=== PATIENT | male | born 1960 | race Caucasian/White ===

== ENCOUNTER 2023-03-18 08:54 | Outpatient (CLI) | payer BC ==
[2023-03-18 10:04] LABS: #Eosinphils 0.6 10x3/uL (0.0-0.5); #Monocytes 0.8 10x3/uL (0.0-1.1); #Neutrophils 4.3 10x3/uL (1.5-8.4); %Basophils 0.5 % (0.0-2.0); %Lymphocytes 25.1 % (18.0-47.0); %Monocytes 9.8 % (0.0-10.0); %Neutrophils 56.2 % (40.0-75.0); Hemoglobin 15.2 g/dL (13.5-17.5); Mean Corpuscular HGB CONC 33.2 g/dL (32.0-36.0); Mean Corpuscular Hemoglobin 28.7 pg (27.0-33.0); Mean Corpuscular Volume 86.4 fl (81.2-95.1); Mean Platelet Volume 10.6 fl (7.4-10.4); Platelet Count 245 10x3/uL (150-450); RBC Distribution Width 12.6 % (11.5-14.5); White Blood Cell (WBC) Count 7.6 10x3/uL (3.5-10.5)
[2023-03-18 10:11] LABS: Prothrombin Time 10.3 sec (9.5-12.1)
[2023-03-18 10:13] LABS: Anion Gap 15 mmol/L (10-20); BUN (Urea Nitrogen) 25 mg/dL (8.4-25.7); Calc. Creatinine Clearance 0 mL/min (70-130); Calcium 9.1 mg/dL (7.8-10.44); Carbon Dioxide 24 mmol/L (23-31); Chloride 102 mmol/L (98-107); Estimated GFR 76; Glucose 252 mg/dL (80-115); Potassium 4.5 mmol/L (3.5-5.1); Sodium 136 mmol/L (136-145)
== END 2023-03-18 08:55 | disposition home or self-care (01) ==
LOC: LABBT 08:54
PROVIDERS: ATTEND Orthopaedic Surgery
DX: Z01.818 Encounter for other preprocedural examination (principal); M17.12 Unilateral primary osteoarthritis, left knee
CPT/HCPCS: 80048; 85025; 85610; 87081; 93005; 93010

== ENCOUNTER 2023-03-21 05:33 | Observation (INO) | payer BC ==
[2023-03-18 09:49] VITALS: BMI 29.9
[2023-03-21] MEDS ORDERED: fentaNYL PF 100 MCG/2 ML SYRINGE ONE (05:58)
[2023-03-21] MEDS ORDERED: PHENYLEPHRINE-NS 100 MCG/ML 10 ML SYRINGE ONE (05:59)
[2023-03-21] MEDS ORDERED: Dexmedetomidine 200 MCG/2 ML VIAL ONE (05:59)
[2023-03-21] MEDS ORDERED: Tranexamic Acid 1,000 MG/10 ML VIAL ONE (06:07)
[2023-03-21] MEDS ORDERED: Sodium Chloride 0.9% 100 ML ONE ×2 (06:07→06:52)
[2023-03-21] MEDS ORDERED: Vancomycin (BATCH) 1.5 GRAM/300 ML BAG ONE (06:07)
[2023-03-21] MEDS ORDERED: HYDROcodone/Acetaminophen 10/325 mg Tablet PO PRN (06:42)
[2023-03-21] MEDS ORDERED: Ondansetron PF 4 MG/2 ML Vial IVP PRN ×2 (06:42→09:15)
[2023-03-21] MEDS ORDERED: diphenhydrAMINE 25 MG CAP PO PRN (06:42)
[2023-03-21] MEDS ORDERED: Acetaminophen 325 MG TAB PO PRN (06:42)
[2023-03-21] MEDS ORDERED: Promethazine HCl 25 MG/ML VIAL IM PRN ×2 (06:42→09:15)
[2023-03-21] MEDS ORDERED: Zolpidem Tartrate 5 MG TAB PO PRN ×2 (06:42→09:15)
[2023-03-21] MEDS ORDERED: Fentanyl 100 MCG/2 ML VIAL SLOW IVP PRN ×2 (06:42)
[2023-03-21] MEDS ORDERED: Bupivacaine PF 0.5% 30 ML VIAL ONE (06:46)
[2023-03-21] MEDS ORDERED: Ropivacaine 0.2% HCl/PF 20 ML ONE (06:49)
[2023-03-21] MEDS ORDERED: fentaNYL 50 mcg/mL 1 mL Vial ONE (06:49)
[2023-03-21] MEDS ORDERED: Midazolam HCl 2 mg/2 ml Vial ONE (06:49)
[2023-03-21] MEDS ORDERED: CEFAZOLIN 2 GM VIAL ONE (06:52)
[2023-03-21] MEDS ORDERED: fentaNYL 50 mcg/mL 1 mL Vial SLOW IVP PRN ×3 (07:02→09:10)
[2023-03-21] MEDS ORDERED: Dexamethasone 20 MG/5 ML VIAL ONE (07:53)
[2023-03-21] MEDS ORDERED: Ondansetron PF 4 MG/2 ML Vial ONE (07:53)
[2023-03-21] MEDS ORDERED: Lidocaine 1% PF 5 ML VIAL ONE (07:53)
[2023-03-21] MEDS ORDERED: PROPOFOL 200 MG/20 ML VIAL ONE (07:53)
[2023-03-21] MEDS ORDERED: Ketorolac Tromethamine 30 MG/ML VIAL ONE (07:53)
[2023-03-21] MEDS ORDERED: Non-Formulary Item 1 EACH (Zinc Gluconate [Zinc] 30 MG Tablet) PO SCH (09:00)
[2023-03-21] MEDS ORDERED: Aspirin Chewable 81 MG TAB PO SCH ×2 (09:00)
[2023-03-21] MEDS ORDERED: Non-Formulary Item 1 EACH (Glucosamine/D3/Boswellia Serra [Osteo Bi-Flex One Per Day] 1 T PO SCH (09:00)
[2023-03-21] MEDS ORDERED: D3 PO SCH (09:00)
[2023-03-21] MEDS ORDERED: GLUCOSAMINE PO SCH (09:00)
[2023-03-21] MEDS ORDERED: Lisinopril 10 MG TAB PO SCH (09:00)
[2023-03-21] MEDS ORDERED: [UNRECOGNIZED DRUG - OTHER] PO SCH (09:00)
[2023-03-21] MEDS ORDERED: Multivit, Therapeutic 1 TAB PO SCH (09:00)
[2023-03-21] MEDS ORDERED: METFORMIN PO SCH (09:00)
[2023-03-21] MEDS ORDERED: Loratadine 10 MG TAB PO SCH (09:00)
[2023-03-21] MEDS ORDERED: Non-Formulary Item 1 EACH (Multivitamin [Multivitamin] 1 EACH Tablet) PO SCH (09:00)
[2023-03-21] MEDS ORDERED: BOSWELLIA SERRA PO SCH (09:00)
[2023-03-21] MEDS ORDERED: GLIPIZIDE PO SCH (09:00)
[2023-03-21] MEDS ORDERED: Simvastatin 40 MG TAB PO SCH (09:00)
[2023-03-21] MEDS ORDERED: Cholecalciferol 1,000 UNITS (25 MCG) TAB PO SCH (09:00)
[2023-03-21] MEDS ORDERED: Ropivacaine 0.2% 550 ML 550 ML NERVE BLCK SCH (09:15)
[2023-03-21] MEDS: Cholecalciferol 1,000 UNITS (25 MCG) TAB PO SCH ×2 (11:54→20:08)
[2023-03-21] MEDS: Sodium Chloride 0.9% 1,000 ML IV SCH ×3 (11:54→23:24)
[2023-03-21] MEDS: Ferrous Gluconate 324 MG TAB PO SCH ×2 (11:54→20:07)
[2023-03-21] MEDS: Aspirin 81 mg Enteric Coated Tablet PO SCH ×2 (11:54→20:07)
[2023-03-21] MEDS: Multivitamin W/ Minerals 1 TAB PO SCH (11:55)
[2023-03-21] MEDS: Loratadine 10 MG TAB PO SCH (11:55)
[2023-03-21] MEDS: Zinc Sulfate 220 MG CAP PO SCH (12:04)
[2023-03-21] MEDS: Senokot S 8.6-50 MG TAB PO SCH ×2 (12:04→20:07)
[2023-03-21] MEDS: Ketorolac Tromethamine 30 MG/ML VIAL IVP SCH ×2 (13:38→21:42)
[2023-03-21] MEDS: CEFAZOLIN 2 GM in Sodium Chloride 0.9% 100 ML IVPB SCH ×2 (13:39→21:42)
[2023-03-21] MEDS: glipiZIDE 5 MG TAB PO SCH ×2 (13:54→20:07)
[2023-03-21] MEDS: Lisinopril 10 MG TAB PO SCH (13:54)
[2023-03-21] MEDS: metFORMIN 500 MG TAB PO SCH ×2 (13:54→20:07)
[2023-03-21] MEDS ORDERED: Atorvastatin Calcium 20 MG TAB PO SCH (21:00)
[2023-03-22] MEDS: Ketorolac Tromethamine 30 MG/ML VIAL IVP SCH (05:46)
[2023-03-22] MEDS: HYDROcodone/Acetaminophen 10/325 mg Tablet PO PRN ×2 (05:46→09:53)
[2023-03-22 06:02] LABS: Hemoglobin 12.4 g/dL (14.0-18.0); Mean Corpuscular HGB CONC 32.7 g/dL (32.0-36.0); Mean Corpuscular Hemoglobin 29.1 pg (27.0-31.0); Mean Corpuscular Volume 89.1 fl (78.0-98.0); Mean Platelet Volume 8.3 fL (7.4-10.4); Platelet Count 224 10x3/uL (130-400); RBC Distribution Width 11.7 % (11.5-14.5); Red Blood Cell (RBC) Count 4.26 mill/uL (4.70-6.10); White Blood Cell (WBC) Count 14.6 10x3/uL (4.8-10.8)
[2023-03-22] MEDS: Lisinopril 10 MG TAB PO SCH (08:34)
[2023-03-22] MEDS: Multivitamin W/ Minerals 1 TAB PO SCH (08:34)
[2023-03-22] MEDS: Ferrous Gluconate 324 MG TAB PO SCH (08:35)
[2023-03-22] MEDS: Zinc Sulfate 220 MG CAP PO SCH (08:35)
[2023-03-22] MEDS: Loratadine 10 MG TAB PO SCH (08:35)
[2023-03-22] MEDS: Cholecalciferol 1,000 UNITS (25 MCG) TAB PO SCH (08:35)
[2023-03-22] MEDS: glipiZIDE 5 MG TAB PO SCH (08:35)
[2023-03-22] MEDS: Senokot S 8.6-50 MG TAB PO SCH (08:36)
[2023-03-22] MEDS: metFORMIN 500 MG TAB PO SCH (08:36)
[2023-03-22] MEDS: Aspirin 81 mg Enteric Coated Tablet PO SCH (08:36)
[2023-03-22 11:24] VITALS: BP 147/77; TEMP 97.9
== END 2023-03-22 11:55 | disposition home or self-care (01) ==
LOC: SDC 05:33 → SJJU 10:28
PROVIDERS: ADMIT Orthopaedic Surgery; ATTEND Orthopaedic Surgery
PROC: 0SRD0J9 Replacement of Left Knee Joint with Synthetic Substitute, Cemented, Open Approach (ICD-10-PCS; principal; 2023-03-21)
DX: M17.12 Unilateral primary osteoarthritis, left knee (principal); I10 Essential (primary) hypertension; E78.5 Hyperlipidemia, unspecified; E11.9 Type 2 diabetes mellitus without complications; F17.290 Nicotine dependence, other tobacco product, uncomplicated; Z85.46 Personal history of malignant neoplasm of prostate; Z79.84 Long term (current) use of oral hypoglycemic drugs; Z79.899 Other long term (current) drug therapy
CPT/HCPCS: 36415; 36416; 85027; 96365; 96375; 96376; A4306; C1713; C1776; G0378; J1100; J1885; J2250; J2405; J2704; J2795; J3010; J3370; J3490; S0020

== ENCOUNTER 2025-01-03 10:28 | Outpatient (CLI) | payer BC ==
[2025-01-03 11:43] LABS: #Basophils 0.05 10x3/uL (0.0-0.2); %Basophils 0.6 % (0.0-1.0); %Eosinophils 8.9 % (0.0-10.0); %Lymphocytes 24.1 % (21.0-51.0); %Monocytes 11.2 % (0.0-10.0); %Neutrophils 54.8 % (42.0-75.0); Hematocrit 44.5 % (42.0-52.0); Hemoglobin 14.6 g/dL (14.0-18.0); Mean Corpuscular HGB CONC 32.8 g/dL (32.0-36.0); Mean Corpuscular Volume 88.5 fL (78.0-98.0); Mean Platelet Volume 10.7 fL (7.4-10.4); Platelet Count 216 10x3/uL (130-400); RBC Distribution Width 13.1 % (11.5-14.5); Red Blood Cell (RBC) Count 5.03 mill/uL (4.70-6.10)
[2025-01-03 12:02] LABS: Anion Gap 12 mmol/L (10-20); BUN (Urea Nitrogen) 20 mg/dL (8.4-25.7); Calc. Creatinine Clearance 0 mL/min (70-130); Calcium 9.5 mg/dL (7.8-10.44); Carbon Dioxide 28 mmol/L (23-31); Chloride 104 mmol/L (98-107); Estimated GFR 92; Glucose 117 mg/dL (80-115); Potassium 4.4 mmol/L (3.5-5.1); Sodium 140 mmol/L (136-145)
== END 2025-01-03 10:29 | disposition home or self-care (01) ==
LOC: LABBT 10:28
PROVIDERS: ATTEND Orthopaedic Surgery
DX: Z01.818 Encounter for other preprocedural examination (principal); M65.342 Trigger finger, left ring finger
CPT/HCPCS: 80048; 85025; 93005; 93010